=== PATIENT | female | born 2005 | race Caucasian/White ===

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

== ENCOUNTER → 2023-01-02 | Outpatient (CLI) | payer OTHER | LOC: M WHC 09:57 | PROVIDERS: ATTEND Advanced Practice Midwife | DX: Z34.02 Encounter for supervision of normal first pregnancy, second trimester (principal); Z3A.19 19 weeks gestation of pregnancy ==

== ENCOUNTER → 2023-03-17 | Outpatient (CLI) | payer OTHER | LOC: M WHC 09:54 | PROVIDERS: ATTEND Advanced Practice Midwife | DX: O99.343 Other mental disorders complicating pregnancy, third trimester (principal); Z3A.30 30 weeks gestation of pregnancy ==

== ENCOUNTER 2023-05-18 07:22 | Inpatient (IN) | payer OTHER ==
[~2023-05-18] VITALS: Ht 180.3 cm; Wt 90.8 kg
[2023-05-18] VITALS (51 sets, daily range): BP systolic 90–142; BP diastolic 53–96
[2023-05-18] MEDS ORDERED: PRENTAB9 PO (07:41)
[2023-05-18] MEDS ORDERED: HOME MED LIST COMPLETE! XX SCH (07:45)
[2023-05-18] MEDS ORDERED: LACTATED RINGER'S 1000 ML IV STA (11:46)
[2023-05-18 12:20] LABS: HEMATOCRIT 32.1 % (36.0-47.0); HEMOGLOBIN 10.6 g/dl (12.0-15.5); MEAN CORPUSCULAR HEMOGLOBIN 26.2 pg (27.0-33.0); MEAN CORPUSCULAR VOLUME 79.3 fl (80.0-96.0); PLATELET COUNT, AUTOMATED 269 10^3/uL (150-450); RED BLOOD COUNT 4.05 10^6/uL (4.00-5.40); WHITE BLOOD COUNT 12.8 10^3/uL (4.0-10.0)
[2023-05-18] MEDS ORDERED: LR 500 ML IV PRN (13:30)
[2023-05-18] MEDS ORDERED: ePHEDrine SULFATE 25 MG/5 ML(5MG/ML) SYRINGE IVP PRN (13:30)
[2023-05-18] MEDS ORDERED: NALOXONE INJ 0.4MG/1ML VIAL IV PRN (13:30)
[2023-05-18] MEDS ORDERED: ONDANSETRON 4MG 2ML VIAL IV PRN (13:30)
[2023-05-18] MEDS ORDERED: FENTANYL/ROPIVACAINE/NACL BAG 100 ML EPIDURAL SCH (13:30)
[2023-05-18] MEDS ORDERED: EPIDURAL/PCA KEYS XX PRN (13:30)
[2023-05-18] MEDS ORDERED: diphenhydrAMINE 50MG/ML VIAL IV PRN (13:30)
[2023-05-18] MEDS: LR 1,000 ML IV SCH ×3 (14:07→22:15)
[2023-05-18] MEDS ORDERED: OXYTOCIN 30UNITS IN 0.9% NaCl 500ML IV BAG As Ordered ONE (20:04)
[2023-05-18] MEDS ORDERED: DOCUSATE SODIUM 100MG CAPSULE PO PRN (21:50)
[2023-05-18] MEDS ORDERED: OXYTOCIN DRIP 30 UNITS in IV 1 EA IV SCH (21:50)
[2023-05-18] MEDS ORDERED: RHOGAM 300MCG (1500IU) INJ IM SCH (21:50)
[2023-05-18] MEDS ORDERED: METHYLERGONOVINE MALEATE 0.2 MG TAB PO PRN (21:50)
[2023-05-18] MEDS ORDERED: ACETAMINOPHEN TAB 650MG DOSE (2X325MG) PO PRN (21:50)
[2023-05-18] MEDS ORDERED: IBUPROFEN 600MG TAB PO PRN (21:50)
[2023-05-18] MEDS ORDERED: DIBUCAINE 1% OINTMENT 30GM TOP PRN (21:50)
[2023-05-18 22:02] LABS: CORD GAS ABE A -3.5; CORD GAS ABE V -4.9; CORD GAS HCO3 A 23.5 MMOL/L; CORD GAS HCO3 V 19.5 MMOL/L; CORD GAS O2 SAT A 40.9 %; CORD GAS O2 SAT V 76.3 %; CORD GAS PCO2 A 49.7 mmHg; CORD GAS PCO2 V 34.9 mmHg; CORD GAS PH A 7.292 UNITS; CORD GAS PH V 7.366 UNITS; CORD GAS PO2 A 20.8 mmHg; CORD GAS PO2 V 32.3 mmHg; CORD GAS SBC A 20.2 MMOL/L; CORD GAS TCO2 V 20.6 MMOL/L
[2023-05-19] MEDS: ACETAMINOPHEN 500 MG TAB PO PRN ×3 (03:47→22:40)
[2023-05-19] MEDS: IBUPROFEN 800 MG TAB PO PRN ×2 (05:26→19:19)
[2023-05-19 06:00] VITALS: BP 107/61
[2023-05-19] MEDS ORDERED: PRENATAL VITAMINS CHEWABLE TABLET PO SCH (09:00)
[2023-05-19 18:00] VITALS: BP 130/87; O2SAT 98
[2023-05-20] MEDS: IBUPROFEN 800 MG TAB PO PRN (03:58)
[2023-05-20 06:00] VITALS: BP 101/66
[2023-05-20] MEDS: ACETAMINOPHEN 500 MG TAB PO PRN (07:34)
[2023-05-20] MEDS ORDERED: ACET-683 PO (08:26)
[2023-05-20] MEDS ORDERED: IBUP-1022 PO (08:26)
[2023-05-20] MEDS ORDERED: MEASLES,MUMPS,RUBELLA VACCINE INJ (MMR-II) SC.IMMUN ONE (09:00)
== END 2023-05-20 13:20 | disposition home or self-care (01) | DRG 807 ==
LOC: M LDO 07:22 → M LDI 12:08 → M OBS 23:27
PROVIDERS: ADMIT Obstetrics & Gynecology; ATTEND Obstetrics & Gynecology
PROC: 10E0XZZ Delivery of Products of Conception, External Approach (ICD-10-PCS; principal; 2023-05-18)
PROC: 10907ZC Drainage of Amniotic Fluid, Therapeutic from Products of Conception, Via Natural or Artificial Opening (ICD-10-PCS; 2023-05-18)
PROC: 0UQMXZZ Repair Vulva, External Approach (ICD-10-PCS; 2023-05-18)
PROC: 0HQ9XZZ Repair Perineum Skin, External Approach (ICD-10-PCS; 2023-05-18)
DX: O69.81X0 Labor and delivery complicated by cord around neck, without compression, not applicable or unspecified (principal); Z37.0 Single live birth; Z3A.39 39 weeks gestation of pregnancy; O71.82 Other specified trauma to perineum and vulva; O70.0 First degree perineal laceration during delivery

== ENCOUNTER → 2024-07-14 | Outpatient (REF) | payer OTHER ==
[~2024-07-14] MED LIST changes: +ACET-683 PO; +IBUP-1022 PO; +PRENTAB9 PO
[2024-07-14 17:24] LABS: ALKALINE PHOSPHATASE 92 U/L (35-104); ALT/SGPT 26 U/L (7.0-40); AST/SGOT 14 U/L (<34); BASO # 0.1 10^3/uL (0.0-0.2); BASO % 0.6 % (0.0-1.0); BILIRUBIN,TOTAL 0.3 MG/DL (0.3-1.2); BLOOD UREA NITROGEN 14 MG/DL (9-23); CALCIUM LEVEL 9.4 MG/DL (8.5-10.1); CARBON DIOXIDE LEVEL 27 MMOL/L (20-31); CHLORIDE LEVEL 104 MMOL/L (98-107); EOS # 0.3 10^3/uL (0.0-0.5); EOS % 2.7 % (0.0-3.0); GLOMERULAR FILTRATION RATE > 60.0 (>60); GLUCOSE, FASTING 87 MG/DL (60-100); HEMATOCRIT 38.1 % (36.0-47.0); HEMOGLOBIN 12.4 g/dl (12.0-15.5); LYMPH # 3.2 10^3/uL (1.5-5.0); LYMPH % 30.1 % (24.0-44.0); MEAN CORPUSCULAR HEMOGLOBIN 27.7 pg (27.0-33.0); MEAN CORPUSCULAR HGB CONC 32.5 g/dl (32.0-36.5); MEAN CORPUSCULAR VOLUME 85.2 fl (80.0-96.0); MONO # 0.7 10^3/uL (0.0-0.8); MONO % 6.4 % (2.0-8.0); NEUTROPHILS # 6.3 10^3/uL (1.5-8.5); NEUTROPHILS % 59.5 % (36.0-66.0); PLATELET COUNT, AUTOMATED 296 10^3/uL (150-450); POTASSIUM SERUM 4.5 MMOL/L (3.5-5.1); RED BLOOD COUNT 4.47 10^6/uL (4.00-5.40); SODIUM LEVEL 141 MMOL/L (136-145); TOTAL PROTEIN 6.9 G/DL (5.7-8.2); WHITE BLOOD COUNT 10.5 10^3/uL (4.0-10.0)
[2024-07-14 17:29] LABS: FREE T4 1.05 NG/DL (0.89-1.76); VITAMIN B12 LEVEL 743 PG/ML (211-911)
[2024-07-14 17:30] LABS: FERRITIN 32.7 NG/ML (7.3-270.7); THYROID STIMULATING HORMONE 1.389 uIU/ML (0.55-4.78)
[2024-07-14 17:31] LABS: TOTAL 25(OH) VITAMIN D 45.2 NG/ML (20.0-100.0)
[2024-07-14 17:32] LABS: FOLATE > 24.0 NG/ML (>5.4)
== END ==
LOC: M SFHCADAM 14:43
PROVIDERS: ATTEND Physician Assistant
DX: F51.01 Primary insomnia (principal); R53.82 Chronic fatigue, unspecified; D64.9 Anemia, unspecified; Z91.89 Other specified personal risk factors, not elsewhere classified

== ENCOUNTER → 2024-09-10 | Outpatient (CLI) | payer OTHER | LOC: M SLEEP HO 08-31 11:09 | PROVIDERS: ATTEND Physician Assistant | DX: G47.33 Obstructive sleep apnea (adult) (pediatric) (principal) ==

== ENCOUNTER → 2024-09-14 | Outpatient (REF) | payer OTHER | LOC: M SFHCWAGY 13:12 | PROVIDERS: ATTEND Advanced Practice Midwife | DX: Z12.4 Encounter for screening for malignant neoplasm of cervix (principal); R87.610 Atypical squamous cells of undetermined significance on cytologic smear of cervix (ASC-US) ==